=== PATIENT | female | born 1950 | race Caucasian/White ===

== ENCOUNTER → 2016-04-24 | Outpatient (REF) | payer MEDICARE, BC ==
[2016-04-24 12:21] LABS: ALBUMIN 3.6 GM/DL (3.2-5.2); ALBUMIN/GLOBULIN RATIO 1.29 (1.00-1.93); ALKALINE PHOSPHATASE 72 U/L (45-117); ALT/SGPT 36 U/L (12-78); ANION GAP 11 MEQ/L (8-16); AST/SGOT 24 U/L (15-37); BILIRUBIN,TOTAL 0.6 MG/DL (0.2-1.0); BLOOD UREA NITROGEN 14 MG/DL (7-18); CALCIUM LEVEL 8.4 MG/DL (8.8-10.2); CARBON DIOXIDE LEVEL 26 MEQ/L (21-32); CHLORIDE LEVEL 103 MEQ/L (98-107); CHOLESTEROL LEVEL 213 MG/DL (<200); CREATININE FOR GFR 0.77 MG/DL (0.55-1.02); GLOMERULAR FILTRATION RATE > 60.0 (>45); GLUCOSE, FASTING 96 MG/DL (80-110); POTASSIUM SERUM 4.2 MEQ/L (3.5-5.1); SODIUM LEVEL 140 MEQ/L (136-145); TOTAL PROTEIN 6.4 GM/DL (6.4-8.2); TRIGLYCERIDES LEVEL 211 MG/DL (<150)
== END ==
LOC: M SFHCPLAZ 07:52
PROVIDERS: ATTEND Internal Medicine
DX: I10 Essential (primary) hypertension (principal); E78.00 Pure hypercholesterolemia, unspecified

== ENCOUNTER → 2016-10-09 | Outpatient (REF) | payer MEDICARE, BC ==
[2016-10-09 11:37] LABS: MEAN CORPUSCULAR HEMOGLOBIN 31.9 pg (27.0-33.0); MEAN CORPUSCULAR HGB CONC 34.6 g/dl (32.0-36.5); MEAN CORPUSCULAR VOLUME 92.2 fl (80.0-96.0); RED CELL DISTRIBUTION WIDTH 12.9 % (11.5-14.5); WHITE BLOOD COUNT 7.1 K/mm3 (4.0-10.0)
[2016-10-09 12:12] LABS: ALBUMIN 3.5 GM/DL (3.2-5.2); ALBUMIN/GLOBULIN RATIO 1.17 (1.00-1.93); ALKALINE PHOSPHATASE 77 U/L (45-117); ALT/SGPT 29 U/L (12-78); ANION GAP 6 MEQ/L (8-16); AST/SGOT 19 U/L (15-37); BILIRUBIN,TOTAL 0.6 MG/DL (0.2-1.0); BLOOD UREA NITROGEN 14 MG/DL (7-18); CALCIUM LEVEL 8.7 MG/DL (8.8-10.2); CARBON DIOXIDE LEVEL 25 MEQ/L (21-32); CHLORIDE LEVEL 108 MEQ/L (98-107); CHOLESTEROL LEVEL 166 MG/DL (<200); CREATININE FOR GFR 0.72 MG/DL (0.55-1.02); GLOMERULAR FILTRATION RATE > 60.0 (>45); GLUCOSE, FASTING 98 MG/DL (80-110); POTASSIUM SERUM 4.3 MEQ/L (3.5-5.1); SODIUM LEVEL 139 MEQ/L (136-145); TOTAL PROTEIN 6.5 GM/DL (6.4-8.2); TRIGLYCERIDES LEVEL 156 MG/DL (<150)
== END ==
LOC: M SFHCPLAZ 09:27
PROVIDERS: ATTEND Internal Medicine
DX: F32.9 Major depressive disorder, single episode, unspecified (principal); I10 Essential (primary) hypertension; E78.00 Pure hypercholesterolemia, unspecified

== ENCOUNTER → 2017-04-09 | Outpatient (REF) | payer MEDICARE, BC ==
[2017-04-09 13:07] LABS: ALBUMIN 3.9 GM/DL (3.2-5.2); ALBUMIN/GLOBULIN RATIO 1.26 (1.00-1.93); ALKALINE PHOSPHATASE 84 U/L (45-117); ALT/SGPT 25 U/L (12-78); ANION GAP 6 MEQ/L (8-16); AST/SGOT 17 U/L (7-37); BILIRUBIN,TOTAL 0.6 MG/DL (0.2-1.0); BLOOD UREA NITROGEN 16 MG/DL (7-18); CALCIUM LEVEL 8.8 MG/DL (8.8-10.2); CARBON DIOXIDE LEVEL 28 MEQ/L (21-32); CHLORIDE LEVEL 102 MEQ/L (98-107); CREATININE FOR GFR 0.66 MG/DL (0.55-1.02); GLOMERULAR FILTRATION RATE > 60.0 (>45); GLUCOSE, FASTING 100 MG/DL (80-110); MAGNESIUM LEVEL 2.2 MG/DL (1.8-2.4); POTASSIUM SERUM 4.5 MEQ/L (3.5-5.1); SODIUM LEVEL 136 MEQ/L (136-145)
== END ==
LOC: M SFHCPLAZ 07:48
DX: I10 Essential (primary) hypertension (principal)
CPT/HCPCS: 83735

== ENCOUNTER → 2017-09-17 | Outpatient (REF) | payer MEDICARE, BC | LOC: M LAB REF 13:43 | DX: N30.01 Acute cystitis with hematuria (principal) | CPT/HCPCS: 87086 ==

== ENCOUNTER 2017-09-18 09:46 | Emergency (ER) | payer MEDICARE, BC ==
[2017-09-18] MEDS: NS 1,000 ML IV ×2 (10:37)
[2017-09-18] MEDS: ONDANSETRON 4MG/2ML VIAL (J2405) IV ×2 (10:38)
[2017-09-18] MEDS: KETOROLAC 30 MG/ML VIAL (J1885) IV ×2 (10:38)
[2017-09-18 10:50] LABS: BASO % 0.4 % (0.0-1.0); EOS # 0.3 10^3/uL (0.0-0.50); EOS % 4.7 % (0.0-3.0); HEMATOCRIT 37.7 % (36.0-47.0); HEMOGLOBIN 13.2 g/dl (12.0-15.5); IMMATURE GRANULOCYTE % 0.3 % (0-3.0); LYMPH # 1.5 10^3/uL (1.5-4.5); LYMPH % 20.8 % (24.0-44.0); MEAN CORPUSCULAR HEMOGLOBIN 31.5 pg (27.0-33.0); MONO # 0.5 10^3/uL (0.0-0.8); MONO % 6.8 % (0.0-5.0); NEUTROPHILS # 4.7 10^3/uL (1.8-7.7); PLATELET COUNT, AUTOMATED 171 10^3/uL (150-450); RED BLOOD COUNT 4.19 10^6/uL (4.00-5.40); RED CELL DISTRIBUTION WIDTH 12.7 % (11.5-14.5); WHITE BLOOD COUNT 7.1 10^3/uL (4.0-10.0)
[2017-09-18 11:04] LABS: KETONE, URINE AUTO RFX NEGATIVE (NEGATIVE); LEUKOCYTE ESTERASE UR AUTO RFX NEGATIVE (NEGATIVE); MUCUS, URINE RFX SMALL (NEGATIVE); NITRITE, URINE AUTO RFX NEGATIVE (NEGATIVE); RBC, URINE AUTO RFX 0 /HPF (0-3); SPECIFIC GRAVITY UR AUTO RFX 1.002 (1.002-1.035); SQUAM EPITHELIAL CELL UR AURFX 0 /HPF (0-6); WBC, URINE AUTO RFX 0 /HPF (0-3)
[2017-09-18 11:50] LABS: ALBUMIN 3.2 GM/DL (3.2-5.2); ALBUMIN/GLOBULIN RATIO 0.94 (1.00-1.93); ALKALINE PHOSPHATASE 55 U/L (45-117); ALT/SGPT 24 U/L (12-78); ANION GAP 9 MEQ/L (8-16); AST/SGOT 14 U/L (7-37); BILIRUBIN,TOTAL 0.4 MG/DL (0.2-1.0); BLOOD UREA NITROGEN 12 MG/DL (7-18); CALCIUM LEVEL 7.9 MG/DL (8.8-10.2); CARBON DIOXIDE LEVEL 22 MEQ/L (21-32); CHLORIDE LEVEL 110 MEQ/L (98-107); CREATININE FOR GFR 0.68 MG/DL (0.55-1.30); GLOMERULAR FILTRATION RATE > 60.0 (>45); GLUCOSE, FASTING 105 MG/DL (70-100); LIPASE 79 U/L (73-393); POTASSIUM SERUM 3.9 MEQ/L (3.5-5.1); SODIUM LEVEL 141 MEQ/L (136-145); TOTAL PROTEIN 6.6 GM/DL (6.4-8.2)
[2017-09-18] MEDS: MORPHINE 4 MG/ML 1ML VIAL/SYRINGE (J2270) IV ×2 (12:13)
[2017-09-18] MEDS: METOCLOPRAMIDE INJ 10MG/2ML VIAL (J2765) IV ×2 (12:13)
== END 2017-09-18 12:48 | disposition home or self-care (01) ==
LOC: M ED 09:46
DX: K52.9 Noninfective gastroenteritis and colitis, unspecified (principal); N28.1 Cyst of kidney, acquired; Z79.899 Other long term (current) drug therapy; Z91.040 Latex allergy status; Z88.2 Allergy status to sulfonamides; Z88.1 Allergy status to other antibiotic agents; Z88.8 Allergy status to other drugs, medicaments and biological substances
CPT/HCPCS: J2270

== ENCOUNTER → 2017-10-08 | Outpatient (REF) | payer MEDICARE, BC ==
[2017-10-08 12:43] LABS: ALBUMIN 3.7 GM/DL (3.2-5.2); ALBUMIN/GLOBULIN RATIO 1.12 (1.00-1.93); ALKALINE PHOSPHATASE 70 U/L (45-117); ALT/SGPT 25 U/L (12-78); ANION GAP 8 MEQ/L (8-16); AST/SGOT 16 U/L (7-37); BILIRUBIN,TOTAL 0.7 MG/DL (0.2-1.0); BLOOD UREA NITROGEN 13 MG/DL (7-18); CALCIUM LEVEL 8.7 MG/DL (8.8-10.2); CARBON DIOXIDE LEVEL 28 MEQ/L (21-32); CHLORIDE LEVEL 104 MEQ/L (98-107); CHOLESTEROL LEVEL 233 MG/DL (<200); CHOLESTEROL RISK RATIO 4.314 (<5); CREATININE FOR GFR 0.73 MG/DL (0.55-1.30); GLOMERULAR FILTRATION RATE > 60.0 (>45); GLUCOSE, FASTING 98 MG/DL (70-100); HDL CHOLESTEROL 54 MG/DL (>40); LDL CHOLESTEROL 133.8 MG/DL (<100); MAGNESIUM LEVEL 2.1 MG/DL (1.8-2.4); NON-HDL-C 179 MG/DL; POTASSIUM SERUM 4.2 MEQ/L (3.5-5.1); SODIUM LEVEL 140 MEQ/L (136-145); TRIGLYCERIDES LEVEL 226 MG/DL (<150)
== END ==
LOC: M SFHCPLAZ 08:54
DX: I10 Essential (primary) hypertension (principal); E78.00 Pure hypercholesterolemia, unspecified
CPT/HCPCS: 83735

== ENCOUNTER 2017-11-25 08:12 | Day surgery (SDC) | payer MEDICARE, BC ==
[2017-11-25] MEDS: NS 1,000 ML IV (08:30)
[2017-11-25] MEDS ORDERED: LIDOCAINE 2% INJ 100 MG/5 ML SDV (FOR ANES.) As Ordered (09:02)
[2017-11-25] MEDS ORDERED: PROPOFOL 200 MG/20 ML VIAL As Ordered ×2 (09:02→10:52)
== END 2017-11-25 11:24 | disposition home or self-care (01) ==
LOC: M OPP 08:12
DX: R93.3 Abnormal findings on diagnostic imaging of other parts of digestive tract (principal); D12.5 Benign neoplasm of sigmoid colon; K64.8 Other hemorrhoids; I10 Essential (primary) hypertension; E78.5 Hyperlipidemia, unspecified; F41.9 Anxiety disorder, unspecified; R06.83 Snoring; Z84.89 Family history of other specified conditions; Z88.1 Allergy status to other antibiotic agents; Z88.2 Allergy status to sulfonamides; Z91.040 Latex allergy status; Z79.899 Other long term (current) drug therapy; Z80.6 Family history of leukemia
CPT/HCPCS: 45385

== ENCOUNTER → 2017-12-17 | Outpatient (CLI) | payer MEDICARE, BC ==
[2017-12-17 13:27] LABS: BLOOD UREA NITROGEN 19 MG/DL (7-18)
[2017-12-17 13:27] LABS: CREATININE FOR GFR 0.79 MG/DL (0.55-1.30); GLOMERULAR FILTRATION RATE > 60.0 (>45)
[2017-12-17 13:48] LABS: FREE THYROXINE INDEX 3.8 % (1.3-4.8); T UPTAKE 33 % (30-39); THYROXINE (T4) 11.4 UG/DL (4.5-12.0)
== END ==
LOC: M LAB 11:49
DX: H05.20 Unspecified exophthalmos (principal); Z13.29 Encounter for screening for other suspected endocrine disorder
CPT/HCPCS: 82565

== ENCOUNTER → 2017-12-24 | Outpatient (CLI) | payer MEDICARE, BC ==
[~2017-12-24] MED LIST: PROHANCE 279.3MG/ML 15ML VIAL (A9576) As Ordered
== END ==
LOC: M RAD 13:04
DX: H05.20 Unspecified exophthalmos (principal)
CPT/HCPCS: A9576

== ENCOUNTER → 2018-10-17 | Outpatient (REF) | payer MEDICARE, BC ==
[~2018-10-17] MED LIST changes: +AMLO5TAB6 PO; +ATOR40TA75 PO; +BENT10CA PO; +BUPR150T3 PO; +CARV25TA PO; +CHLO125TA PO; +CIPR250T3; +FISH1200 PO; +FISH7.5C PO; +FLON1SPR; +FLON1SPR NARES; +IBUP200C25 PO; -PROHANCE 279.3MG/ML 15ML VIAL (A9576) As Ordered; +PROT1TAB2 PO; +VITATAB11 PO; +ZOFR4TAB14 PO
[2018-10-17 12:00] LABS: HEMATOCRIT 40.3 % (36.0-47.0); HEMOGLOBIN 13.9 g/dl (12.0-15.5); MEAN CORPUSCULAR HEMOGLOBIN 30.2 pg (27.0-33.0); MEAN CORPUSCULAR HGB CONC 34.5 g/dl (32.0-36.5); MEAN CORPUSCULAR VOLUME 87.4 fl (80.0-96.0); PLATELET COUNT, AUTOMATED 225 10^3/uL (150-450); RED BLOOD COUNT 4.61 10^6/uL (4.00-5.40); WHITE BLOOD COUNT 9.3 10^3/uL (4.0-10.0)
[2018-10-17 12:37] LABS: ALT/SGPT 28 U/L (12-78); BILIRUBIN,TOTAL 0.8 MG/DL (0.2-1.0); BLOOD UREA NITROGEN 13 MG/DL (7-18); CALCIUM LEVEL 9.2 MG/DL (8.8-10.2); CARBON DIOXIDE LEVEL 25 MEQ/L (21-32); CHLORIDE LEVEL 100 MEQ/L (98-107); CHOLESTEROL LEVEL 256 MG/DL (<200); CHOLESTEROL RISK RATIO 5.565 (<5); CREATININE FOR GFR 0.74 MG/DL (0.55-1.30); GLOMERULAR FILTRATION RATE > 60.0 (>45); GLUCOSE, FASTING 111 MG/DL (70-100); HDL CHOLESTEROL 46 MG/DL (>40); LDL CHOLESTEROL 147 MG/DL (<100); MAGNESIUM LEVEL 2.2 MG/DL (1.8-2.4); NON-HDL-C 210 MG/DL; POTASSIUM SERUM 3.1 MEQ/L (3.5-5.1); SODIUM LEVEL 135 MEQ/L (136-145); TOTAL PROTEIN 7.7 GM/DL (6.4-8.2); TRIGLYCERIDES LEVEL 313 MG/DL (<150)
== END ==
LOC: M SFHCPLAZ 09:18
PROVIDERS: ATTEND Internal Medicine
DX: E78.00 Pure hypercholesterolemia, unspecified (principal); I10 Essential (primary) hypertension; F32.9 Major depressive disorder, single episode, unspecified

== ENCOUNTER → 2018-11-24 | Outpatient (REF) | payer MEDICARE, BC ==
[2018-11-24 11:27] LABS: CHOLESTEROL RISK RATIO 3.08 (<5); POTASSIUM SERUM 4.5 MEQ/L (3.5-5.1)
== END ==
LOC: M SFHCPLAZ 08:42
PROVIDERS: ATTEND Internal Medicine
DX: E78.00 Pure hypercholesterolemia, unspecified (principal); I10 Essential (primary) hypertension

== ENCOUNTER → 2019-04-24 | Outpatient (CLI) | payer MEDICARE, BC ==
[2019-04-24 13:51] LABS: ALBUMIN 3.9 GM/DL (3.2-5.2); ALT/SGPT 23 U/L (12-78); BILIRUBIN,TOTAL 0.5 MG/DL (0.2-1.0); BLOOD UREA NITROGEN 14 MG/DL (7-18); CALCIUM LEVEL 8.7 MG/DL (8.8-10.2); CARBON DIOXIDE LEVEL 28 MEQ/L (21-32); CHLORIDE LEVEL 110 MEQ/L (98-107); CHOLESTEROL LEVEL 132 MG/DL (<200); CHOLESTEROL RISK RATIO 2.538 (<5); CREATININE FOR GFR 0.64 MG/DL (0.55-1.30); GLOMERULAR FILTRATION RATE > 60.0 (>45); GLUCOSE, FASTING 99 MG/DL (70-100); HDL CHOLESTEROL 52 MG/DL (>40); LDL CHOLESTEROL 64 MG/DL (<100); NON-HDL-C 80 MG/DL; POTASSIUM SERUM 4.8 MEQ/L (3.5-5.1); SODIUM LEVEL 141 MEQ/L (136-145); TOTAL PROTEIN 6.7 GM/DL (6.4-8.2); TRIGLYCERIDES LEVEL 78 MG/DL (<150)
== END ==
LOC: M PLALAB 09:36
PROVIDERS: ATTEND Internal Medicine
DX: E78.00 Pure hypercholesterolemia, unspecified (principal); I10 Essential (primary) hypertension

== ENCOUNTER → 2020-01-17 | Outpatient (REF) | payer MEDICARE, BC ==
[~2020-01-17] MED LIST changes: +AMLO1TAB24 PO; -AMLO5TAB6 PO
[2020-01-17 14:08] LABS: HEMATOCRIT 41.2 % (36.0-47.0); MEAN CORPUSCULAR HGB CONC 31.6 g/dl (32.0-36.5); MEAN CORPUSCULAR VOLUME 95.2 fl (80.0-96.0); PLATELET COUNT, AUTOMATED 204 10^3/uL (150-450); RED BLOOD COUNT 4.33 10^6/uL (4.00-5.40); WHITE BLOOD COUNT 7.8 10^3/uL (4.0-10.0)
[2020-01-17 14:44] LABS: ALBUMIN 3.6 GM/DL (3.2-5.2); ALT/SGPT 25 U/L (12-78); BILIRUBIN,TOTAL 0.7 MG/DL (0.2-1.0); BLOOD UREA NITROGEN 9 MG/DL (7-18); CALCIUM LEVEL 8.9 MG/DL (8.8-10.2); CARBON DIOXIDE LEVEL 28 MEQ/L (21-32); CHLORIDE LEVEL 106 MEQ/L (98-107); CREATININE FOR GFR 0.64 MG/DL (0.55-1.30); GLOMERULAR FILTRATION RATE > 60.0 (>45); GLUCOSE, FASTING 97 MG/DL (70-100); POTASSIUM SERUM 4.7 MEQ/L (3.5-5.1); SODIUM LEVEL 137 MEQ/L (136-145); TOTAL PROTEIN 6.7 GM/DL (6.4-8.2)
[2020-01-17 14:51] LABS: TOTAL 25(OH) VITAMIN D 23.7 NG/ML (30.0-100.0)
[2020-01-18 11:15] LABS: CHOLESTEROL LEVEL 162 MG/DL (<200); CHOLESTEROL RISK RATIO 3.176 (<5); HDL CHOLESTEROL 51 MG/DL (>40); LDL CHOLESTEROL 73 MG/DL (<100); NON-HDL-C 111 MG/DL; TRIGLYCERIDES LEVEL 188 MG/DL (<150)
== END ==
LOC: M PLALAB 10:14
PROVIDERS: ATTEND Internal Medicine
DX: Z86.010 Personal history of colon polyps (principal); I10 Essential (primary) hypertension; M85.851 Other specified disorders of bone density and structure, right thigh

== ENCOUNTER → 2020-06-24 | Outpatient (REF) | payer MEDICARE, BC ==
[~2020-06-24] MED LIST changes: +BUPR150T12 PO; -BUPR150T3 PO
== END ==
LOC: M LAB REF 11:34
PROVIDERS: ATTEND Nurse Practitioner Family
DX: R30.0 Dysuria (principal)

== ENCOUNTER → 2020-07-09 | Outpatient (REF) | payer MEDICARE, BC ==
[2020-07-09 14:06] LABS: CHOLESTEROL RISK RATIO 4.425 (<5)
== END ==
LOC: M SFHCPLAZ 11:19
PROVIDERS: ATTEND Internal Medicine
DX: E78.00 Pure hypercholesterolemia, unspecified (principal)

== ENCOUNTER → 2020-12-24 | Outpatient (CLI) | payer MEDICARE, BC ==
[2020-12-24 13:26] LABS: BASO % 0.4 % (0.0-1.0); EOS # 0.2 10^3/uL (0.0-0.5); EOS % 2.1 % (0.0-3.0); HEMATOCRIT 41.2 % (36.0-47.0); HEMOGLOBIN 13.5 g/dl (12.0-15.5); LYMPH # 1.7 10^3/uL (1.5-5.0); LYMPH % 20.4 % (24.0-44.0); MEAN CORPUSCULAR HEMOGLOBIN 29.7 pg (27.0-33.0); MEAN CORPUSCULAR HGB CONC 32.8 g/dl (32.0-36.5); MEAN CORPUSCULAR VOLUME 90.7 fl (80.0-96.0); MONO # 0.7 10^3/uL (0.0-0.8); MONO % 8.4 % (2.0-8.0); NEUTROPHILS # 5.8 10^3/uL (1.5-8.5); NEUTROPHILS % 68.2 % (36.0-66.0); PLATELET COUNT, AUTOMATED 206 10^3/uL (150-450); RED BLOOD COUNT 4.54 10^6/uL (4.00-5.40); WHITE BLOOD COUNT 8.5 10^3/uL (4.0-10.0)
[2020-12-24 14:27] LABS: ALBUMIN 3.6 GM/DL (3.2-5.2); ALT/SGPT 26 U/L (12-78); BILIRUBIN,TOTAL 1.1 MG/DL (0.2-1.0); BLOOD UREA NITROGEN 15 MG/DL (7-18); CALCIUM LEVEL 9.3 MG/DL (8.8-10.2); CARBON DIOXIDE LEVEL 28 MEQ/L (21-32); CHLORIDE LEVEL 105 MEQ/L (98-107); CHOLESTEROL LEVEL 161 MG/DL (<200); CHOLESTEROL RISK RATIO 2.981 (<5); CREATININE FOR GFR 0.79 MG/DL (0.55-1.30); GLOMERULAR FILTRATION RATE > 60.0 (>39); GLUCOSE, FASTING 93 MG/DL (70-100); HDL CHOLESTEROL 54 MG/DL (>40); LDL CHOLESTEROL 75 MG/DL (<100); NON-HDL-C 107 MG/DL; SODIUM LEVEL 138 MEQ/L (136-145); TRIGLYCERIDES LEVEL 160 MG/DL (<150)
== END ==
LOC: M PLALAB 10:41
PROVIDERS: ATTEND Internal Medicine
DX: E78.00 Pure hypercholesterolemia, unspecified (principal); I10 Essential (primary) hypertension; Z11.59 Encounter for screening for other viral diseases

== ENCOUNTER → 2021-04-17 | Outpatient (REF) | payer MEDICARE, BC | LOC: M SFHCPLAZ 12:37 | PROVIDERS: ATTEND Nurse Practitioner Adult Health | DX: R05.9 Cough, unspecified (principal) ==

== ENCOUNTER → 2021-04-17 | Outpatient (CLI) | payer MEDICARE, BC | LOC: M PLAIMG 11:10 | PROVIDERS: ATTEND Nurse Practitioner Adult Health | DX: R05.9 Cough, unspecified (principal) ==

== ENCOUNTER → 2021-06-24 | Outpatient (CLI) | payer MEDICARE, BC | LOC: M RAD 14:16 | PROVIDERS: ATTEND Physician Assistant | DX: R05.9 Cough, unspecified (principal) | CPT/HCPCS: 71046; U0003 ==

== ENCOUNTER → 2021-07-17 | Outpatient (REF) | payer MEDICARE, BC ==
[2021-07-17 16:49] LABS: ALBUMIN 3.6 GM/DL (3.2-5.2); ALT/SGPT 28 U/L (12-78); BILIRUBIN,TOTAL 0.5 MG/DL (0.2-1.0); BLOOD UREA NITROGEN 10 MG/DL (7-18); CALCIUM LEVEL 9.2 MG/DL (8.8-10.2); CARBON DIOXIDE LEVEL 28 MEQ/L (21-32); CHLORIDE LEVEL 106 MEQ/L (98-107); CHOLESTEROL LEVEL 197 MG/DL (<200); GLOMERULAR FILTRATION RATE > 60.0 (>39); GLUCOSE, FASTING 84 MG/DL (70-100); HDL CHOLESTEROL 65 MG/DL (>40); LDL CHOLESTEROL 93 MG/DL (<100); MAGNESIUM LEVEL 2.1 MG/DL (1.8-2.4); NON-HDL-C 132 MG/DL; POTASSIUM SERUM 4.4 MEQ/L (3.5-5.1); SODIUM LEVEL 141 MEQ/L (136-145); TOTAL PROTEIN 6.7 GM/DL (6.4-8.2); TRIGLYCERIDES LEVEL 197 MG/DL (<150)
== END ==
LOC: M SFHCPLAZ 14:28
PROVIDERS: ATTEND Internal Medicine
DX: I10 Essential (primary) hypertension (principal); E78.00 Pure hypercholesterolemia, unspecified

== ENCOUNTER → 2022-01-19 | Outpatient (CLI) | payer MEDICARE, BC ==
[~2022-01-19] MED LIST changes: +FISH10005 PO; -FISH7.5C PO
[2022-01-19 17:38] LABS: HEMATOCRIT 40.2 % (36.0-47.0); HEMOGLOBIN 12.9 g/dl (12.0-15.5); MEAN CORPUSCULAR HEMOGLOBIN 29.9 pg (27.0-33.0); MEAN CORPUSCULAR HGB CONC 32.1 g/dl (32.0-36.5); MEAN CORPUSCULAR VOLUME 93.1 fl (80.0-96.0); PLATELET COUNT, AUTOMATED 195 10^3/uL (150-450); RED BLOOD COUNT 4.32 10^6/uL (4.00-5.40); WHITE BLOOD COUNT 9.4 10^3/uL (4.0-10.0)
[2022-01-19 18:09] LABS: ALBUMIN 3.4 GM/DL (3.2-5.2); ALT/SGPT 30 U/L (12-78); BILIRUBIN,TOTAL 0.7 MG/DL (0.2-1.0); BLOOD UREA NITROGEN 11 MG/DL (7-18); CALCIUM LEVEL 8.7 MG/DL (8.8-10.2); CARBON DIOXIDE LEVEL 26 MEQ/L (21-32); CHLORIDE LEVEL 104 MEQ/L (98-107); CHOLESTEROL LEVEL 181 MG/DL (<200); CHOLESTEROL RISK RATIO 3.415 (<5); CREATININE FOR GFR 0.62 MG/DL (0.55-1.30); GLOMERULAR FILTRATION RATE > 60.0 (>39); GLUCOSE, FASTING 89 MG/DL (70-100); HDL CHOLESTEROL 53 MG/DL (>40); LDL CHOLESTEROL 76 MG/DL (<100); NON-HDL-C 128 MG/DL; SODIUM LEVEL 135 MEQ/L (136-145); TOTAL PROTEIN 6.5 GM/DL (6.4-8.2); TRIGLYCERIDES LEVEL 258 MG/DL (<150)
== END ==
LOC: M LABDRWAD 13:50
PROVIDERS: ATTEND Internal Medicine Hematology
DX: E78.00 Pure hypercholesterolemia, unspecified (principal); I10 Essential (primary) hypertension; Z86.010 Personal history of colon polyps

== ENCOUNTER → 2022-07-06 | Outpatient (REF) | payer MEDICARE, BC | LOC: M SFHCPLAZ 11:04 | PROVIDERS: ATTEND Internal Medicine Hematology | DX: I10 Essential (primary) hypertension (principal); F10.10 Alcohol abuse, uncomplicated ==

== ENCOUNTER → 2022-07-06 | Outpatient (CLI) | payer MEDICARE, BC ==
[2022-07-06 13:49] LABS: BASO % 0.3 % (0.0-1.0); EOS # 0.2 10^3/uL (0.0-0.5); EOS % 1.8 % (0.0-3.0); HEMATOCRIT 41.4 % (36.0-47.0); LYMPH # 1.7 10^3/uL (1.5-5.0); LYMPH % 19.2 % (24.0-44.0); MEAN CORPUSCULAR HEMOGLOBIN 30.8 pg (27.0-33.0); MEAN CORPUSCULAR HGB CONC 33.8 g/dl (32.0-36.5); MONO # 0.8 10^3/uL (0.0-0.8); MONO % 8.9 % (2.0-8.0); NEUTROPHILS % 69.6 % (36.0-66.0); PLATELET COUNT, AUTOMATED 196 10^3/uL (150-450); RED BLOOD COUNT 4.55 10^6/uL (4.00-5.40); WHITE BLOOD COUNT 8.7 10^3/uL (4.0-10.0)
[2022-07-06 14:06] LABS: ALBUMIN 3.7 G/DL (3.2-5.2); ALKALINE PHOSPHATASE 90 U/L (46-116); ALT/SGPT 27 U/L (7.0-40); AST/SGOT 22 U/L (<34); BILIRUBIN,TOTAL 0.9 MG/DL (0.3-1.2); BLOOD UREA NITROGEN 10 MG/DL (9-23); CALCIUM LEVEL 8.7 MG/DL (8.3-10.6); CARBON DIOXIDE LEVEL 28 MMOL/L (20-31); CHLORIDE LEVEL 100 MMOL/L (98-107); CHOLESTEROL LEVEL 160 MG/DL (<200); CHOLESTEROL RISK RATIO 2.86 (<5); CREATININE FOR GFR 0.66 MG/DL (0.55-1.30); GLOMERULAR FILTRATION RATE > 60.0 (>39); GLUCOSE, FASTING 92 MG/DL (74-106); HDL CHOLESTEROL 55.9 MG/DL (>40); LDL CHOLESTEROL 72.9 MG/DL (<100); NON-HDL-C 104.1 MG/DL; POTASSIUM SERUM 3.2 MMOL/L (3.5-5.1); SODIUM LEVEL 138 MMOL/L (136-145); THYROID STIMULATING HORMONE 2.692 uIU/ML (0.55-4.78); TOTAL PROTEIN 6.7 G/DL (5.7-8.2); TRIGLYCERIDES LEVEL 156 MG/DL (<150)
[2022-07-06 14:07] LABS: TOTAL 25(OH) VITAMIN D 31.7 NG/ML (20.0-100.0); VITAMIN B12 LEVEL 274 PG/ML (211-911)
[2022-07-06 14:08] LABS: FREE T4 1.28 NG/DL (0.89-1.76)
[2022-07-06 14:24] LABS: HEMOGLOBIN A1c 5.2 % (4.0-6.0)
== END ==
LOC: M PLALAB 11:30
PROVIDERS: ATTEND Internal Medicine Hematology
DX: I10 Essential (primary) hypertension (principal); F10.10 Alcohol abuse, uncomplicated; Z79.899 Other long term (current) drug therapy

== ENCOUNTER → 2022-11-19 | Outpatient (CLI) | payer MEDICARE, BC ==
[2022-11-19 15:47] LABS: BASO % 0.4 % (0.0-1.0); EOS # 0.2 10^3/uL (0.0-0.5); EOS % 1.9 % (0.0-3.0); HEMATOCRIT 41.1 % (36.0-47.0); HEMOGLOBIN 13.2 g/dl (12.0-15.5); LYMPH # 1.8 10^3/uL (1.5-5.0); LYMPH % 20.1 % (24.0-44.0); MEAN CORPUSCULAR HEMOGLOBIN 30.5 pg (27.0-33.0); MEAN CORPUSCULAR HGB CONC 32.1 g/dl (32.0-36.5); MEAN CORPUSCULAR VOLUME 94.9 fl (80.0-96.0); MONO # 0.7 10^3/uL (0.0-0.8); MONO % 7.4 % (2.0-8.0); NEUTROPHILS # 6.3 10^3/uL (1.5-8.5); NEUTROPHILS % 69.9 % (36.0-66.0); PLATELET COUNT, AUTOMATED 180 10^3/uL (150-450); RED BLOOD COUNT 4.33 10^6/uL (4.00-5.40); WHITE BLOOD COUNT 9.1 10^3/uL (4.0-10.0)
[2022-11-19 15:58] LABS: INR 1.15; PROTHROMBIN TIME 14.4 SECONDS (12.5-14.5)
[2022-11-19 15:59] LABS: PARTIAL THROMBOPLASTIN TIME 27.3 SECONDS (24.8-34.2)
[2022-11-19 16:05] LABS: BLOOD UREA NITROGEN 9 MG/DL (9-23); CALCIUM LEVEL 8.7 MG/DL (8.3-10.6); CARBON DIOXIDE LEVEL 28 MMOL/L (20-31); CHLORIDE LEVEL 106 MMOL/L (98-107); CREATININE FOR GFR 0.65 MG/DL (0.55-1.30); GLOMERULAR FILTRATION RATE > 60.0 (>39); GLUCOSE, FASTING 91 MG/DL (74-106); POTASSIUM SERUM 4.9 MMOL/L (3.5-5.1); SODIUM LEVEL 140 MMOL/L (136-145)
== END ==
LOC: M PLALAB 14:39
PROVIDERS: ATTEND Physician Assistant Medical
DX: Z01.818 Encounter for other preprocedural examination (principal); J45.21 Mild intermittent asthma with (acute) exacerbation

== ENCOUNTER → 2023-01-04 | Outpatient (CLI) | payer MEDICARE, BC ==
[2023-01-04 16:54] LABS: TOTAL 25(OH) VITAMIN D 40.7 NG/ML (20.0-100.0)
== END ==
LOC: M PLALAB 12:02
PROVIDERS: ATTEND Internal Medicine Hematology
DX: E53.8 Deficiency of other specified B group vitamins (principal); Z79.899 Other long term (current) drug therapy

== ENCOUNTER → 2023-02-08 | Day surgery (SDC) | payer MEDICARE, BC ==
[~2023-02-08] VITALS: Ht 157.5 cm; Wt 68.9 kg
[~2023-02-08] MED LIST changes: +ALLE1TAB23 PO; +ATOR80TA59 PO; +B-12100010 PO; +CHOL378P3; +EQL50TAB2 PO; +GLYCOPYRROLATE INJ 0.2 MG/ML 2 ML VIAL As Ordered ONE; +HYDR-643 PO; +LEXA1TAB PO; +LIDOCAINE 2% 100MG/5ML SDV (FOR ANES.) As Ordered ONE; +NS 1,000 ML IV ONE; +ZOLP5TAB PO; +propofoL 200 MG/20 ML VIAL As Ordered ONE
[2023-02-08 11:16] VITALS: TEMP 98.5
[2023-02-08 11:30] VITALS: BP 131/62; O2SAT 96
== END | disposition home or self-care (01) ==
LOC: M OPP 09:06
PROVIDERS: ATTEND Internal Medicine Gastroenterology
DX: Z12.11 Encounter for screening for malignant neoplasm of colon (principal); D12.4 Benign neoplasm of descending colon; K57.30 Diverticulosis of large intestine without perforation or abscess without bleeding; K64.8 Other hemorrhoids; Z86.010 Personal history of colon polyps; I10 Essential (primary) hypertension; E78.00 Pure hypercholesterolemia, unspecified; J45.909 Unspecified asthma, uncomplicated; Z79.899 Other long term (current) drug therapy; Z88.2 Allergy status to sulfonamides; Z88.1 Allergy status to other antibiotic agents

== ENCOUNTER 2023-04-28 15:15 | Emergency (ER) | payer MEDICARE, BC ==
[~2023-04-28] VITALS: Ht 154.9 cm; Wt 67.8 kg
[~2023-04-28 15:15] MED LIST changes: -ALLE1TAB23 PO; +FEXO-157 PO; -GLYCOPYRROLATE INJ 0.2 MG/ML 2 ML VIAL As Ordered ONE; -LIDOCAINE 2% 100MG/5ML SDV (FOR ANES.) As Ordered ONE; -NS 1,000 ML IV ONE; -propofoL 200 MG/20 ML VIAL As Ordered ONE
[2023-04-28 16:14] LABS: BASO % 0.2 % (0.0-1.0); EOS # 0.1 10^3/uL (0.0-0.5); EOS % 1.4 % (0.0-3.0); HEMATOCRIT 41.4 % (36.0-47.0); HEMOGLOBIN 13.7 g/dl (12.0-15.5); LYMPH # 1.6 10^3/uL (1.5-5.0); LYMPH % 18.5 % (24.0-44.0); MEAN CORPUSCULAR HEMOGLOBIN 31.7 pg (27.0-33.0); MEAN CORPUSCULAR HGB CONC 33.1 g/dl (32.0-36.5); MEAN CORPUSCULAR VOLUME 95.8 fl (80.0-96.0); MONO # 0.7 10^3/uL (0.0-0.8); MONO % 8.8 % (2.0-8.0); NEUTROPHILS % 70.7 % (36.0-66.0); PLATELET COUNT, AUTOMATED 193 10^3/uL (150-450); RED BLOOD COUNT 4.32 10^6/uL (4.00-5.40); WHITE BLOOD COUNT 8.4 10^3/uL (4.0-10.0)
[2023-04-28 16:45] LABS: BLOOD UREA NITROGEN 15 MG/DL (9-23); CALCIUM LEVEL 8.8 MG/DL (8.3-10.6); CARBON DIOXIDE LEVEL 28 MMOL/L (20-31); CHLORIDE LEVEL 106 MMOL/L (98-107); CREATININE FOR GFR 0.64 MG/DL (0.55-1.30); GLOMERULAR FILTRATION RATE > 60.0 (>39); GLUCOSE, FASTING 93 MG/DL (74-106); POTASSIUM SERUM 4.4 MMOL/L (3.5-5.1); SODIUM LEVEL 139 MMOL/L (136-145)
[2023-04-28 17:31] LABS: CK-MB VALUE MASS < 1.0 NG/ML (<3.6)
[2023-04-28 17:33] LABS: CPK CREATINE PHOSPHOKINASE 25 U/L (34-145)
[2023-04-28 18:01] LABS: APPEARANCE, URINE CLEAR (CLEAR); BACTERIA, URINE AUTO NEGATIVE (NEGATIVE); BILIRUBIN, URINE AUTO NEGATIVE (NEGATIVE); BLOOD, URINE BLOOD NEGATIVE (NEGATIVE); COLOR, URINE YELLOW (YELLOW); GLUCOSE, URINE (UA) AUTO NEGATIVE (NEGATIVE); KETONE, URINE AUTO NEGATIVE (NEGATIVE); LEUKOCYTE ESTERASE, URINE AUTO NEGATIVE (NEGATIVE); MUCUS, URINE SMALL (NEGATIVE); NITRITE, URINE AUTO NEGATIVE (NEGATIVE); PROTEIN, URINE AUTO NEGATIVE (NEGATIVE); RBC, URINE AUTO 1 /HPF (0-3); SPECIFIC GRAVITY URINE AUTO 1.026 (1.002-1.035); SQUAMOUS EPITHELIAL CELL UR AU 1 /HPF (0-6); WBC, URINE AUTO 1 /HPF (0-3)
[2023-04-28 18:22] VITALS: BP 157/65; TEMP 97.4; O2SAT 97
== END 2023-04-28 18:29 | disposition home or self-care (01) ==
LOC: M ED 15:15
DX: S00.93XA Contusion of unspecified part of head, initial encounter (principal); S30.0XXA Contusion of lower back and pelvis, initial encounter; W19.XXXA Unspecified fall, initial encounter; Y92.9 Unspecified place or not applicable; Y93.9 Activity, unspecified; Y99.9 Unspecified external cause status; I10 Essential (primary) hypertension; J45.909 Unspecified asthma, uncomplicated; E78.5 Hyperlipidemia, unspecified; F41.9 Anxiety disorder, unspecified; Z79.899 Other long term (current) drug therapy; Z88.2 Allergy status to sulfonamides; Z88.1 Allergy status to other antibiotic agents; Z88.8 Allergy status to other drugs, medicaments and biological substances; Z91.040 Latex allergy status

== ENCOUNTER → 2023-05-14 | Outpatient (CLI) | payer MEDICARE, BC ==
[~2023-05-14] MED LIST changes: +ISOVUE-370 76% 100ML VIAL As Ordered ONE
== END ==
LOC: M RAD 07:57
PROVIDERS: ATTEND Internal Medicine Hematology
DX: R55 Syncope and collapse (principal)
CPT/HCPCS: 70470; Q9967

== ENCOUNTER → 2023-07-12 | Outpatient (CLI) | payer MEDICARE, BC ==
[~2023-07-12] MED LIST changes: -ISOVUE-370 76% 100ML VIAL As Ordered ONE
[2023-07-12 13:37] LABS: BASO % 0.5 % (0.0-1.0); EOS # 0.1 10^3/uL (0.0-0.5); EOS % 1.5 % (0.0-3.0); HEMATOCRIT 40.9 % (36.0-47.0); HEMOGLOBIN 13.4 g/dl (12.0-15.5); LYMPH # 1.6 10^3/uL (1.5-5.0); LYMPH % 19.6 % (24.0-44.0); MEAN CORPUSCULAR HEMOGLOBIN 31.8 pg (27.0-33.0); MEAN CORPUSCULAR HGB CONC 32.8 g/dl (32.0-36.5); MEAN CORPUSCULAR VOLUME 96.9 fl (80.0-96.0); MONO # 0.5 10^3/uL (0.0-0.8); MONO % 6.7 % (2.0-8.0); NEUTROPHILS # 5.8 10^3/uL (1.5-8.5); NEUTROPHILS % 71.5 % (36.0-66.0); PLATELET COUNT, AUTOMATED 169 10^3/uL (150-450); RED BLOOD COUNT 4.22 10^6/uL (4.00-5.40); WHITE BLOOD COUNT 8.1 10^3/uL (4.0-10.0)
[2023-07-12 13:57] LABS: C REACTIVE PROTEIN QUANTITATIV < 0.40 MG/DL (<1.0)
[2023-07-12 13:59] LABS: ALBUMIN 3.3 G/DL (3.2-5.2); ALKALINE PHOSPHATASE 90 U/L (46-116); ALT/SGPT 23 U/L (7.0-40); AST/SGOT 20 U/L (<34); BILIRUBIN,TOTAL 0.7 MG/DL (0.3-1.2); BLOOD UREA NITROGEN 11 MG/DL (9-23); CALCIUM LEVEL 8.7 MG/DL (8.3-10.6); CARBON DIOXIDE LEVEL 29 MMOL/L (20-31); CHLORIDE LEVEL 106 MMOL/L (98-107); CHOLESTEROL LEVEL 169 MG/DL (<200); CHOLESTEROL RISK RATIO 2.81 (<5); CREATININE FOR GFR 0.68 MG/DL (0.55-1.30); GLOMERULAR FILTRATION RATE > 60.0 (>39); GLUCOSE, FASTING 96 MG/DL (74-106); LDL CHOLESTEROL 76.2 MG/DL (<100); POTASSIUM SERUM 5.2 MMOL/L (3.5-5.1); SODIUM LEVEL 140 MMOL/L (136-145); THYROID STIMULATING HORMONE 2.352 uIU/ML (0.55-4.78); TOTAL PROTEIN 6.6 G/DL (5.7-8.2); TRIGLYCERIDES LEVEL 164 MG/DL (<150)
[2023-07-12 14:00] LABS: TOTAL 25(OH) VITAMIN D 35.6 NG/ML (20.0-100.0)
[2023-07-12 14:01] LABS: VITAMIN B12 LEVEL 432 PG/ML (211-911)
[2023-07-12 14:08] LABS: HEMOGLOBIN A1c 5.1 % (4.0-6.0)
[2023-07-12 16:03] LABS: MAU/CREAT RATIO 3.9 MCG/MG (0.0-30.0)
== END ==
LOC: M PLALAB 11:53
PROVIDERS: ATTEND Internal Medicine Hematology
DX: E78.00 Pure hypercholesterolemia, unspecified (principal); Z79.899 Other long term (current) drug therapy

== ENCOUNTER → 2023-07-22 | Outpatient (CLI) | payer MEDICARE, BC | LOC: M PLALAB 14:24 | PROVIDERS: ATTEND Internal Medicine Hematology | DX: E87.5 Hyperkalemia (principal) ==

== ENCOUNTER → 2023-12-15 | Outpatient (REF) | payer MEDICARE, BC ==
[~2023-12-15] MED LIST changes: -FEXO-157 PO; +FEXO-63 PO
[2023-12-15 19:05] LABS: HEMATOCRIT 40.1 % (36.0-47.0); HEMOGLOBIN 12.9 g/dl (12.0-15.5); MEAN CORPUSCULAR HEMOGLOBIN 31.3 pg (27.0-33.0); MEAN CORPUSCULAR HGB CONC 32.2 g/dl (32.0-36.5); MEAN CORPUSCULAR VOLUME 97.3 fl (80.0-96.0); PLATELET COUNT, AUTOMATED 189 10^3/uL (150-450); RED BLOOD COUNT 4.12 10^6/uL (4.00-5.40); WHITE BLOOD COUNT 7.6 10^3/uL (4.0-10.0)
[2023-12-15 19:36] LABS: ALT/SGPT 28 U/L (7.0-40); AST/SGOT 27 U/L (<34); BLOOD UREA NITROGEN 8 MG/DL (9-23); CALCIUM LEVEL 8.9 MG/DL (8.3-10.6); CARBON DIOXIDE LEVEL 27 MMOL/L (20-31); CHLORIDE LEVEL 105 MMOL/L (98-107); CHOLESTEROL LEVEL 177 MG/DL (<200); CHOLESTEROL RISK RATIO 3.47 (<5); CPK CREATINE PHOSPHOKINASE 34 U/L (34-145); CREATININE FOR GFR 0.71 MG/DL (0.55-1.30); GLOMERULAR FILTRATION RATE > 60.0 (>39); GLUCOSE, FASTING 89 MG/DL (74-106); HDL CHOLESTEROL 50.9 MG/DL (>40); LDL CHOLESTEROL 86.1 MG/DL (<100); NON-HDL-C 126.1 MG/DL; POTASSIUM SERUM 4.8 MMOL/L (3.5-5.1); SODIUM LEVEL 135 MMOL/L (136-145); TRIGLYCERIDES LEVEL 200 MG/DL (<150)
== END ==
LOC: M LABDRWAD 17:14
PROVIDERS: ATTEND Physician Assistant
DX: E78.2 Mixed hyperlipidemia (principal); I10 Essential (primary) hypertension; S70.362A Insect bite (nonvenomous), left thigh, initial encounter

== ENCOUNTER → 2024-03-16 | Outpatient (CLI) | payer MEDICARE, BC ==
[2024-03-16 18:22] LABS: IRON (FE) 96 UG/DL (50-170)
[2024-03-16 18:23] LABS: ALBUMIN 3.5 G/DL (3.2-5.2); ALKALINE PHOSPHATASE 127 U/L (35-104); ALT/SGPT 58 U/L (7.0-40); AST/SGOT 34 U/L (<34); BILIRUBIN,TOTAL 0.7 MG/DL (0.3-1.2); BLOOD UREA NITROGEN 8 MG/DL (9-23); CALCIUM LEVEL 9.1 MG/DL (8.3-10.6); CARBON DIOXIDE LEVEL 27 MMOL/L (20-31); CHLORIDE LEVEL 105 MMOL/L (98-107); CHOLESTEROL LEVEL 178 MG/DL (<200); CHOLESTEROL RISK RATIO 2.89 (<5); CREATININE FOR GFR 0.59 MG/DL (0.55-1.30); GLOMERULAR FILTRATION RATE > 60.0 (>39); GLUCOSE, FASTING 95 MG/DL (74-106); HDL CHOLESTEROL 61.5 MG/DL (>40); LDL CHOLESTEROL 84.9 MG/DL (<100); NON-HDL-C 116.5 MG/DL; POTASSIUM SERUM 4.4 MMOL/L (3.5-5.1); SODIUM LEVEL 139 MMOL/L (136-145); TRIGLYCERIDES LEVEL 158 MG/DL (<150)
[2024-03-16 18:24] LABS: FERRITIN 261.5 NG/ML (7.3-270.7); FREE T4 1.12 NG/DL (0.89-1.76); THYROID STIMULATING HORMONE 1.565 uIU/ML (0.55-4.78)
[2024-03-16 18:25] LABS: VITAMIN B12 LEVEL 460 PG/ML (211-911)
== END ==
LOC: M PLALAB 15:07
PROVIDERS: ATTEND Student in an Organized Health Care Education/Training Program
DX: Z00.00 Encounter for general adult medical examination without abnormal findings (principal); J06.9 Acute upper respiratory infection, unspecified; Z79.899 Other long term (current) drug therapy; E55.9 Vitamin D deficiency, unspecified

== ENCOUNTER → 2024-05-03 | Outpatient (CLI) | payer MEDICARE, BC ==
[2024-05-03 19:06] LABS: BASO % 0.5 % (0.0-1.0); EOS # 0.2 10^3/uL (0.0-0.5); EOS % 2.7 % (0.0-3.0); HEMATOCRIT 39.2 % (36.0-47.0); HEMOGLOBIN 12.5 g/dl (12.0-15.5); LYMPH # 2.4 10^3/uL (1.5-5.0); LYMPH % 27.1 % (24.0-44.0); MEAN CORPUSCULAR HEMOGLOBIN 31.3 pg (27.0-33.0); MEAN CORPUSCULAR HGB CONC 31.9 g/dl (32.0-36.5); MONO # 0.9 10^3/uL (0.0-0.8); MONO % 9.9 % (2.0-8.0); NEUTROPHILS # 5.3 10^3/uL (1.5-8.5); NEUTROPHILS % 59.6 % (36.0-66.0); PLATELET COUNT, AUTOMATED 234 10^3/uL (150-450); WHITE BLOOD COUNT 8.9 10^3/uL (4.0-10.0)
[2024-05-03 19:19] LABS: ALBUMIN 3.5 G/DL (3.2-5.2); BILIRUBIN,DIRECT 0.4 MG/DL (<0.4); BILIRUBIN,TOTAL 0.7 MG/DL (0.3-1.2); TOTAL PROTEIN 6.5 G/DL (5.7-8.2)
== END ==
LOC: M PLALAB 15:53
PROVIDERS: ATTEND Student in an Organized Health Care Education/Training Program
DX: R79.89 Other specified abnormal findings of blood chemistry (principal)

== ENCOUNTER → 2024-05-19 | Outpatient (CLI) | payer MEDICARE, BC ==
[2024-05-19 13:59] LABS: FOLATE 20.3 NG/ML (>5.4)
[2024-05-26 07:32] LABS: Methylmalonic Acid 151 nmol/L (69-390)
== END ==
LOC: M PLALAB 10:03
PROVIDERS: ATTEND Student in an Organized Health Care Education/Training Program
DX: R71.8 Other abnormality of red blood cells (principal)

== ENCOUNTER → 2024-06-26 | Outpatient (CLI) | payer MEDICARE, BC ==
[2024-06-26 11:27] LABS: CHOLESTEROL RISK RATIO 3.19 (<5); HDL CHOLESTEROL 49.5 MG/DL (>40); LDL CHOLESTEROL 80.9 MG/DL (<100); NON-HDL-C 108.5 MG/DL
== END ==
LOC: M PLALAB 09:07
PROVIDERS: ATTEND Internal Medicine Cardiovascular Disease
DX: E78.2 Mixed hyperlipidemia (principal)

== ENCOUNTER → 2024-07-21 | Outpatient (REF) | payer MEDICARE, BC ==
[2024-07-21 14:22] LABS: ALBUMIN 3.4 G/DL (3.2-5.2); ALKALINE PHOSPHATASE 67 U/L (35-104); ALT/SGPT 21 U/L (7.0-40); AST/SGOT 17 U/L (<34); BILIRUBIN,DIRECT 0.2 MG/DL (<0.4); BILIRUBIN,TOTAL 0.7 MG/DL (0.3-1.2); BLOOD UREA NITROGEN 13 MG/DL (9-23); CALCIUM LEVEL 8.9 MG/DL (8.3-10.6); CARBON DIOXIDE LEVEL 28 MMOL/L (20-31); CHLORIDE LEVEL 106 MMOL/L (98-107); CHOLESTEROL LEVEL 139 MG/DL (<200); CHOLESTEROL RISK RATIO 2.55 (<5); CREATININE FOR GFR 0.64 MG/DL (0.55-1.30); GLOMERULAR FILTRATION RATE > 90.0 (>39); GLUCOSE, FASTING 99 MG/DL (74-106); HDL CHOLESTEROL 54.4 MG/DL (>40); LDL CHOLESTEROL 62.8 MG/DL (<100); MAGNESIUM LEVEL 1.9 MG/DL (1.8-2.4); NON-HDL-C 84.6 MG/DL; PHOSPHORUS LEVEL 4.5 MG/DL (2.4-5.1); SODIUM LEVEL 141 MMOL/L (136-145); TOTAL PROTEIN 6.3 G/DL (5.7-8.2); TRIGLYCERIDES LEVEL 109 MG/DL (<150)
[2024-07-21 14:23] LABS: FREE T4 1.07 NG/DL (0.89-1.76)
[2024-07-21 15:06] LABS: HEMOGLOBIN A1c 5.3 % (4.0-6.0)
== END ==
LOC: M LABDRWAD 13:12
PROVIDERS: ATTEND Student in an Organized Health Care Education/Training Program
DX: Z00.00 Encounter for general adult medical examination without abnormal findings (principal); Z79.899 Other long term (current) drug therapy

== ENCOUNTER → 2024-08-03 | Outpatient (CLI) | payer MEDICARE, BC | LOC: M WUC 12:56 | PROVIDERS: ATTEND Student in an Organized Health Care Education/Training Program | DX: R06.02 Shortness of breath (principal); I51.7 Cardiomegaly ==

== ENCOUNTER 2025-01-12 15:25 | Emergency (ER) | payer MEDICARE, BC ==
[~2025-01-12] VITALS: Ht 154.9 cm; Wt 76.2 kg
[~2025-01-12 15:25] MED LIST changes: -EQL50TAB2 PO; +VITA1TAB82 PO; -ZOLP5TAB PO; +ZOLP5TAB9 PO
[2025-01-12 15:28] VITALS: BP 151/67; TEMP 97.2; O2SAT 97
== END 2025-01-12 18:16 | disposition home or self-care (01) ==
LOC: M ED 15:25
DX: S69.92XA Unspecified injury of left wrist, hand and finger(s), initial encounter (principal); W19.XXXA Unspecified fall, initial encounter; Y92.009 Unspecified place in unspecified non-institutional (private) residence as the place of occurrence of the external cause; Y93.9 Activity, unspecified; Y99.9 Unspecified external cause status; I10 Essential (primary) hypertension; E78.5 Hyperlipidemia, unspecified; Z79.899 Other long term (current) drug therapy; Z88.2 Allergy status to sulfonamides; Z88.1 Allergy status to other antibiotic agents; Z88.8 Allergy status to other drugs, medicaments and biological substances; Z91.040 Latex allergy status

== ENCOUNTER → 2025-02-08 | Outpatient (CLI) | payer MEDICARE, BC | LOC: M RAD 08:46 | PROVIDERS: ATTEND Physician Assistant Surgical | DX: S60.042D Contusion of left ring finger without damage to nail, subsequent encounter (principal) ==

== ENCOUNTER → 2025-02-20 | Outpatient (REF) | payer MEDICARE, BC ==
[~2025-02-20] MED LIST changes: -FISH10005 PO; +FISH1CAP38 PO
[2025-02-20 13:54] LABS: C REACTIVE PROTEIN QUANTITATIV 0.68 MG/DL (<1.0)
[2025-02-20 13:59] LABS: BASO # 0.0 10^3/uL (0.0-0.2); BASO % 0.4 % (0.0-1.0); EOS # 0.2 10^3/uL (0.0-0.5); EOS % 2.2 % (0.0-3.0); LYMPH # 1.2 10^3/uL (1.5-5.0); LYMPH % 18.0 % (24.0-44.0); MONO # 1.0 10^3/uL (0.0-0.8); MONO % 14.3 % (2.0-8.0); NEUTROPHILS # 4.4 10^3/uL (1.5-8.5); NEUTROPHILS % 64.8 % (36.0-66.0); PLATELET COUNT, AUTOMATED 180 10^3/uL (150-450)
[2025-02-20 14:07] LABS: RHEUMATOID FACTOR QUANT < 3.5 IU/ML (<14)
[2025-02-23 21:07] LABS: LYME TOTAL ANTIBODY CIA <= 0.90 Index (<=0.90)
== END ==
LOC: M LABDRWAD 13:17
PROVIDERS: ATTEND Physician Assistant Surgical
DX: M67.824 Other specified disorders of tendon, left elbow (principal); E78.00 Pure hypercholesterolemia, unspecified

== ENCOUNTER → 2025-02-20 | Outpatient (REF) | payer MEDICARE, BC ==
[2025-02-20 13:54] LABS: CHOLESTEROL LEVEL 177.0 MG/DL (<200); CHOLESTEROL RISK RATIO 2.93 (<5); LDL CHOLESTEROL 72.1 MG/DL (<100); NON-HDL-C 116.7 MG/DL; TRIGLYCERIDES LEVEL 223.0 MG/DL (<150)
== END ==
LOC: M SFHCPLAZ 09:56
PROVIDERS: ATTEND Student in an Organized Health Care Education/Training Program
DX: E78.00 Pure hypercholesterolemia, unspecified (principal)